=== PATIENT | male | born 1975 | race Caucasian/White ===

== ENCOUNTER → 2021-06-20 08:12 | Outpatient (CLI) | payer OTHER, SELFPAY ==
[2021-06-20 08:47] LABS: COVID19 -Nasal RAPID Negative (Negative)
== END ==
PROVIDERS: Referring Provider Student in an Organized Health Care Education/Training Program; Visit Provider Student in an Organized Health Care Education/Training Program
DX: R11.0 Nausea (principal); R53.83 Other fatigue; Z20.822 Contact with and (suspected) exposure to COVID-19
CPT/HCPCS: 87635